=== PATIENT | male | born 1965 | race Caucasian/White ===

== ENCOUNTER → 2020-12-28 07:34 | Outpatient (CLI) | payer OTHER, SELFPAY ==
--- NOTE | 2020-12-28 | DI.US.S_ITS ---
PROCEDURE: US ABDOMEN COMPLETE INDICATIONS: ELEVATED LIVER ENZYMES TECHNIQUE: Real-time scanning was performed of the abdominal and retroperitoneal organs, with image documentation. COMPARISON: None. FINDINGS: Liver: Liver is normal in size and homogeneously hyperechoic in echotexture. There are two thin-walled hypoechoic structures in the liver dome one measuring 8 mm and the other measuring 1.5 x 1.3 x 1.1 cm. No adjacent or internal vascularity. Gallbladder: The gallbladder is normal without stones, sludge, wall thickening, or pericholecystic fluid. Biliary ducts: Intrahepatic bile ducts are non-dilated. Extrahepatic bile duct caliber measures 6.8 mm. Normal is 6-7 mm or less in diameter, or 10 mm or less post-cholecystectomy. Pancreas: Visualized portions of the pancreas are sonographically normal. Spleen: Spleen is normal in size and homogeneous in echotexture. Kidneys: Kidneys are normal in size and echotexture. Right kidney measures 12.5 cm long; left kidney measures 11.8 cm long. No hydronephrosis or nephrolithiasis. No solid masses. Aorta: Visualized aorta is normal in caliber at less than 3 cm. Proximal and distal portions are mildly ectatic at 2.6 and 2.7 cm respectively. There is irregularity of the luminal contour in the distal portion. Iliacs: Proximal common iliac arteries are normal in caliber at less than 2.5 cm. IVC: Intrahepatic inferior vena cava is patent. Miscellaneous: No free abdominal fluid. IMPRESSION: 1. Mild to moderate hepatic steatosis or other intrinsic liver disease. 2. 2 liver cysts. 3. Normal gallbladder. 4. Ectatic abdominal aorta. Consider ultrasound follow-up in 1-3 years. Dictated by: Gayatri Ricci M.D. on 12/28/2020 at 11:41 Approved by: Gayatri Ricci M.D. on 12/28/2020 at 11:45
== END ==
PROVIDERS: PCP Internal Medicine; Referring Provider Internal Medicine; Visit Provider Internal Medicine
DX: R79.89 Other specified abnormal findings of blood chemistry (principal); K76.89 Other specified diseases of liver; I77.811 Abdominal aortic ectasia
CPT/HCPCS: 76700

== ENCOUNTER 2021-10-13 13:26 | Emergency (ER) | payer OTHER, SELFPAY ==
[2021-10-13 13:42] VITALS: BP 136/79; PULSE 59; RESP 20; TEMP 36.6; O2SAT 98; BMI 29.7
--- NOTE | 2021-10-13 14:24 | ED_ITS ---
HPI - Wound/Laceration General Chief Complaint: Wound/Laceration Stated Complaint: busted open head Time Seen by Provider: 10/13/21 14:08 Source: patient Mode of arrival: Family Vehicle Limitations: no limitations History of Present Illness HPI narrative: 56-year-old gentleman no significant medical problems is camping in his motor home and is he was adjusting the slight out turned and hit his head on the corner of the slide portion of the motor home. He has a 1.5 cm laceration to the top of his head. There is no loss of consciousness, bleeding is controlled. He has no other complaints or concerns. Related Data Allergies Allergy/AdvReac Type Severity Reaction Status Date / Time No Known Allergies Allergy Uncoded 10/13/21 13:42 Review of Systems Review of Systems Narrative: Pertinent positive and negative findings as per HPI Remainder of review of systems is otherwise unremarkable for Constitutional: Fevers, chills, weakness ENT: No sore throat, neck pain, ear pain CV: Chest pain, palpitations, Respiratory: Cough, wheeze, dyspnea GI: Nausea, vomiting, diarrhea, : Dysuria, hematuria, Patient History Social History Smoking Status: Never smoker Smoking Status: Never smoker alcohol intake frequency: holidays/special occasions only Substance Use Type: does not use Exam Narrative Exam Narrative: General: Alert appropriate in no acute distress HEENT: 1.5 cm sinple laceration to top of scalp,left side. Bleeding is controlled. No surrounding hematoma or beige in. Respiratory: Able to speak in full sentences, no obvious respiratory distress Skin: No obvious rashes, warm and dry Neurologic: Grossly intact no obvious asymmetries or abnormalities Psych: appropriate insight and affect, cooperative Initial Vital Signs Initial Vital Signs: Vital Signs Temperature 97.8 F 10/13/21 13:42 Pulse Rate 59 L 10/13/21 13:42 Respiratory Rate 20 10/13/21 13:42 Blood Pressure 136/79 10/13/21 13:42 Pulse Oximetry 98 10/13/21 13:42 Procedures Laceration Repair Scalp, left side: Time of procedure: 14:38 Site: scalp Side (If applicable): left Size (cm): 1.5 Description: linear Depth: simple, single layer Pre-repair: wound explored and deep structures intact Skin layer closed with: man Number of sutures: 2 Course Orders Ordered: Discontinued Medications Diphtheria/Tetanus/Acell Pertussis (Tet,Diph,Pertuss(Acell),Vac/Pf 0.5 Ml Syringe) 0.5 ml IM .ONCE ONE Stop: 10/13/21 13:58 Vital Signs Vital signs: Vital Signs - 8 hr 10/13/21 13:42 Temperature 97.8 F Pulse Rate 59 L Respiratory Rate 20 Blood Pressure 136/79 Pulse Oximetry 98 MDM - Wound/Laceration MDM Narrative Medical decision making narrative: Otherwise healthy 56-year-old gentleman who stood up and cut the top of his head on the sharp edge of a and angle of his motor home. 1.5 cm bleeding controlled. Two man were placed. Tetanus status is updated. He will need the man out on or about October 23. Safe for home discharge Discharge Plan Departure Patient Disposition: Home Clinical Impression: Laceration Instructions: DI for Minor Laceration Activity Restrictions/Additional Instructions: Thank you for coming in today You have 2 man to hold the small wound together on the top of your scalp. These will need to be removed on or about October 23. It is okay to wash her hair and simply pat dry the area. Be gentle with shampoo for the 1st 2 or 3 days so that it does not get into the wound and sting. Using 400 mg of ibuprofen (2 [id number] pills) and 1 Tylenol every 6 hours can be very helpful in controlling pain. If you notice any new or worsening symptoms, please feel free to return to the ER Referrals: Tatianna Ross ARNP [[employer]] -
[2021-10-13] MEDS: OXYCODONE/ACETAMINOPHEN 5/325 TABLET 1 TAB PO (14:28)
[2021-10-13] MEDS: IBUPROFEN 400 MG TABLET PO (14:28)
[2021-10-13] MEDS: TET,DIPH,PERTUSS(ACELL),VAC/PF 0.5 ML SYRINGE IM (14:29)
== END 2021-10-13 14:45 | disposition home or self-care (01) ==
PROVIDERS: Emergency Provider Emergency Medicine
DX: S01.01XA Laceration without foreign body of scalp, initial encounter (principal); Z23 Encounter for immunization; W22.8XXA Striking against or struck by other objects, initial encounter; Y93.89 Activity, other specified
CPT/HCPCS: 12001; 90471; 99282; 99284; 90715